=== PATIENT | male | born 1990 | race Caucasian/White ===

== ENCOUNTER 2020-12-16 09:40 | Outpatient (CLI) | payer BC | END 2020-12-16 09:41 | disposition home or self-care (01) | LOC: RAD-FRANK 09:40 | PROVIDERS: ATTEND Nurse Practitioner Family | DX: M79.671 Pain in right foot (principal) ==

== ENCOUNTER 2021-09-30 14:27 | Outpatient (CLI) | payer BC, OTHER | END 2021-09-30 14:28 | disposition home or self-care (01) | LOC: RAD-FRANK 14:27 | PROVIDERS: ATTEND Nurse Practitioner Family | DX: S99.912A Unspecified injury of left ankle, initial encounter (principal) ==